=== PATIENT | female | born 1975 | race Hispanic/Latino ===

== ENCOUNTER 2021-03-11 06:58 | Day surgery (SDC) | payer OTHER ==
[2021-03-09 09:43] LABS: BASOPHILS % (AUTO) 0.6 % (0.0-5.0); HEMATOCRIT 38.5 % (36-48); LYMPHOCYTES % (AUTO) 25.3 % (21.0-51.0); MEAN CORPUSCULAR HEMOGLOBIN 30.5 pg (27.0-33.0); MEAN CORPUSCULAR VOLUME 92.5 fL (79-99); MONOCYTES % (AUTO) 3.6 % (3.0-13.0); PLATELET COUNT (AUTO) 277 K/uL (130-400); RED BLOOD CELL COUNT(AUTO) 4.16 MIL/uL (4.00-5.50); RED CELL DISTRIBUTION WIDTH 13.7 % (11.0-15.5); WHITE BLOOD COUNT (AUTO) 10.7 K/uL (4.8-10.8)
[2021-03-09 10:03] LABS: CREATININE 1.2 mg/dL (0.5-1.5); POTASSIUM 4.5 mmol/L (3.5-5.1)
[2021-03-09 10:15] LABS: INR 1.01 (0.85-1.15)
[2021-03-09 10:16] LABS: PARTIAL THROMBOPLASTIN TIME 26.4 SEC (26.3-35.5)
[~2021-03-11] VITALS: Ht 149.9 cm; Wt 80.1 kg
[~2021-03-11 06:58] MED LIST: AMLO-257 PO; ASPI-1443 PO; ATOR40TA71 PO; CLOP75TA32 PO; FISH1CAP50 PO; LISI1TAB32 PO; METF-446 PO; MULT-1203 PO; methylpred PO
[2021-03-11 07:30] VITALS: BP 156/87
[2021-03-11] MEDS ORDERED: 0.9%NACL 1000ML 1,000 ML IV SCH (08:00)
[2021-03-11] MEDS ORDERED: LIDOCAINE HCL 1% MDV 50ML VIAL ONE (10:03)
[2021-03-11] MEDS ORDERED: BUPIVACAINE/PF 0.25% 30ML VIAL IJ ONE (10:03)
[2021-03-11 11:10] VITALS: BP 117/76
[2021-03-11 11:25] VITALS: BP 116/76
[2021-03-11 11:40] VITALS: BP 123/80
== END 2021-03-11 11:40 | disposition home or self-care (01) ==
LOC: DAH 06:58
PROVIDERS: ATTEND Internal Medicine Cardiovascular Disease
DX: I63.9 Cerebral infarction, unspecified (principal); Z79.899 Other long term (current) drug therapy; Z79.01 Long term (current) use of anticoagulants; Z98.890 Other specified postprocedural states; Z79.82 Long term (current) use of aspirin; Z79.84 Long term (current) use of oral hypoglycemic drugs; Z88.1 Allergy status to other antibiotic agents
CPT/HCPCS: 33285; 36415; 80048; 82948; 85025; 85610; 85730; A4215; A4216; A4221; A4222; A4223 ×3; A4606; A4649; A4663; C1764; J3490 ×2; J7030; 33286